=== PATIENT | male | born 1965 | race Caucasian/White ===

== ENCOUNTER 2017-09-24 10:37 | Emergency (ER) | payer BC, SELFPAY ==
[2017-09-24] VITALS (8 sets, daily range): BP systolic 133–185; BP diastolic 85–102; PULSE 42–62; RESP 16–24; TEMP 36.6–36.7; O2SAT 98–100; BMI 25.1; BMI 21.8
--- NOTE | 2017-09-24 10:47 | HMH.EDGENADL ---
ED Disposition Clinical Impression: Headache Disposition: Xfer Critical Access Hosp Condition on Discharge: Serious Forms: Transfer Record - ED - Critical Care Critical Care Time: No Attestation: On , the high probability of a clinically significant, sudden or life threatening deterioration of the following system(s) required my full and direct attention, intervention and personal management. The time I documented below is in addition to time spent performing reported procedures but includes the following listed in this critical care notation. Medical Decision Making Vital Signs: 09/24/17 10:38 09/24/17 11:30 09/24/17 11:32 Temperature 98.0 F Temperature Source Oral Pulse Rate Pulse Rate [Orthostatic Lying Right] 56 L Pulse Rate [Orthostatic Sitting Right Brachial] 54 L Pulse Rate [Orthostatic Standing Right Brachial] Pulse Rate [Right Radial] 62 Respiratory Rate 20 Blood Pressure Blood Pressure [Orthostatic Lying] 141/85 Blood Pressure [Orthostatic Sitting Right Arm] 150/88 Blood Pressure [Orthostatic Standing] Blood Pressure [Right Arm] 154/92 Blood Pressure Mean [Right Arm] 112 Blood Pressure Source Blood Pressure Source [Right Arm] Automatic Cuff Blood Pressure Position Blood Pressure Position [Right Arm] Supine 02 Sat by Pulse Oximetry 100 Oxygen Delivery Method Room Air 09/24/17 11:34 09/24/17 12:12 09/24/17 12:27 Temperature Temperature Source Pulse Rate Pulse Rate [Orthostatic Lying Right] Pulse Rate [Orthostatic Sitting Right Brachial] Pulse Rate [Orthostatic Standing Right Brachial] 58 L Pulse Rate [Right Radial] 46 L 44 L Respiratory Rate 24 18 Blood Pressure Blood Pressure [Orthostatic Lying] Blood Pressure [Orthostatic Sitting Right Arm] Blood Pressure [Orthostatic Standing] 140/91 Blood Pressure [Right Arm] 180/92 185/92 Blood Pressure Mean [Right Arm] 121 123 Blood Pressure Source Blood Pressure Source [Right Arm] Blood Pressure Position Blood Pressure Position [Right Arm] 02 Sat by Pulse Oximetry 100 Oxygen Delivery Method Non-Rebreather 09/24/17 12:52 09/24/17 13:02 Temperature 98 F Temperature Source Oral Pulse Rate 48 L Pulse Rate [Orthostatic Lying Right] Pulse Rate [Orthostatic Sitting Right Brachial] Pulse Rate [Orthostatic Standing Right Brachial] Pulse Rate [Right Radial] 42 L Respiratory Rate 16 16 Blood Pressure 133/102 Blood Pressure [Orthostatic Lying] Blood Pressure [Orthostatic Sitting Right Arm] Blood Pressure [Orthostatic Standing] Blood Pressure [Right Arm] 133/102 Blood Pressure Mean [Right Arm] 112 Blood Pressure Source Automatic Cuff Blood Pressure Source [Right Arm] Blood Pressure Position Supine Blood Pressure Position [Right Arm] 02 Sat by Pulse Oximetry 98 Oxygen Delivery Method Room Air - Lab Data Lab Results 09/24/17 10:45: WBC 7.3, RBC 5.41, Hgb 15.5, Hct 46.3, MCV 85.6, MCH 28.6, MCHC 33.4, RDW 12.7, Plt Count 241, MPV 7.2 L, Neut % (Auto) 52.4, Lymph % (Auto) 39.1, [place] % (Auto) 6.3, Eos % (Auto) 1.6, Baso % (Auto) 0.6, Neut # (Auto) 3.8, Lymph # (Auto) 2.8, [place] # (Auto) 0.5, Eos # (Auto) 0.1, Baso # (Auto) 0.0 09/24/17 10:45: Sodium 139, Potassium 3.7, Chloride 103, Carbon Dioxide 29, Anion Gap 10.7, BUN 14, Creatinine 1.02, Estimated Creat Clear 93, Estimated GFR 77, Est GFR ( Amer) 93, Glucose 118 H, Calcium 8.8, Total Bilirubin 0.6, AST 14 L, ALT 30, Alkaline Phosphatase 124 H, Total Creatine Kinase 195, CK-MB (CK-2) 2.4, CK-MB (CK-2) Rel Index 1.2, Troponin I < 0.02, Total Protein 6.9, Albumin 4.0, Globulin 2.9, Albumin/Globulin Ratio 1.4 Result diagrams: 09/24/17 10:45 09/24/17 10:45 Orders (Tests/Meds): ED MEDICATIONS Discontinued Medications Generic Name Dose Route Start Last Admin Trade Name Freq PRN Reason Stop Dose Admin Morphine Sulfate 4 mg 09/24/17 12:19 09/24/17 12:25 Yordani
--- NOTE | 2017-09-24 10:53 | CT_ITS ---
CT head/brain wo con HISTORY: ITS.REASON: sharp pain left side head, syncope ORDERING PHYSICIAN: Shorty Lambert MD PATIENT AGE: 52 years COMPARISON: None TECHNIQUE: Axial images obtained without contrast. Brain and bone windows reviewed. FINDINGS: No midline shift, mass effect, intracranial hemorrhage, hydrocephalus, or extra-axial fluid collection is evident. Slight low-density changes are present in the periventricular region in the parietal occipital area bilaterally slightly greater on the right and may be related to ischemic gliotic change from small vessel disease. No acute intracranial hemorrhage. No intra or extra-axial mass. No mastoid effusion or sinus air-fluid level. Unremarkable calvarium. IMPRESSION: 1. No acute intracranial hemorrhage. 2. Subtle isodensity in the parieto-occipital lobes bilaterally slightly greater on the right and may be due to underlying ischemic gliotic change. MRI may confirm.
--- NOTE | 2017-09-24 10:54 | XR_ITS ---
XR chest 2V HISTORY: ITS.REASON: bradycardia with near syncope ORDERING PHYSICIAN: Shorty Lambert MD PATIENT AGE: 52 years COMPARISON: None available FINDINGS: The cardiomediastinal silhouette and pulmonary vascularity are within normal limits. The lungs are clear without infiltrates, suspicious nodules, or pleural effusions. No acute bony abnormalities. IMPRESSION: Negative chest, no acute finding
[2017-09-24 11:14] LABS: Basophils % 0.6 % (0.1-2.0); Eosinophils # 0.1 K/mm3 (0.0-0.4); Eosinophils % 1.6 % (0.1-12.0); Hematocrit 46.3 % (42.0-52.0); Hemoglobin 15.5 g/dL (14.1-18.0); Lymphocytes # 2.8 K/mm3 (0.7-4.5); Lymphocytes % 39.1 K/mm3 (10-50); Mean Corpuscular HGB Conc 33.4 g/dL (31.8-35.4); Mean Corpuscular Hemoglobin 28.6 pg (27.0-31.2); Mean Corpuscular Volume 85.6 fl (80-94); Mean Platelet Volume 7.2 fl (7.4-10.4); Monocytes # 0.5 K/mm3 (0.1-1.0); Monocytes % 6.3 % (1.7-9.3); Neutrophils # 3.8 K/mm3 (1.8-7.8); Neutrophils % 52.4 % (37.0-80.0); Platelet Count 241 K/mm3 (142-424); Red Blood Count 5.41 M/mm3 (4.60-6.20); Red Cell Distribution Width 12.7 % (11.5-17.5); White Blood Count 7.3 K/mm3 (4.8-10.8)
[2017-09-24 11:29] LABS: Alanine Aminotransferase 30 U/L (12-78); Albumin/Globulin Ratio 1.4 (1.1-1.8); Alkaline Phosphatase 124 U/L (46-116); Anion Gap 10.7 mEq/L (5-15); Aspartate Amino Transferase 14 U/L (15-37); Bilirubin,Total 0.6 mg/dL (0.2-1.0); Blood Urea Nitrogen 14 mg/dL (7-18); CKMB Relative Index 1.2 U/L (0-4.0); Calcium 8.8 mg/dL (8.5-10.1); Carbon Dioxide 29 mmol/L (21.0-32.0); Chloride 103 mmol/L (98-107); Creatine Kinase 195 U/L (39-308); Creatine Kinase MB 2.4 mg/ml (0.0-3.6); Creatinine Clearance Estimated 93 mL/min (0-300); Creatinine,Serum 1.02 mg/dL (0.70-1.30); Estimated Glomerular Filt Rate 77 ml/min (>60); GFR (African American) 93 ML/MIN (>60); Globulin 2.9 gm/dl (1.3-3.2); Glucose 118 mg/dL (74-106); Potassium 3.7 mmoL/L (3.5-5.1); Sodium 139 mmol/L (136-145); Total Protein,Serum 6.9 gm/dL (6.4-8.2); Troponin I < 0.02 ng/ml (0.00-0.06)
--- NOTE | 2017-09-24 12:14 | PC.NURSE ---
Pt complaining of severe headache of left side, 05/06. MD aware and at bedside. Given morphine and zofran IVP. MD contacting [facility] for potential transfer. Family at bedside. Will continue to monitor closely.
--- NOTE | 2017-09-24 12:39 | PC.NURSE ---
[facility] has declined transport due to weather , speaking with [facility] now
--- NOTE | 2017-09-24 12:44 | PC.NURSE ---
Report given to JOSSELINE Merlos at [facility].
== END 2017-09-24 12:50 | disposition critical access hospital (66) ==
PROVIDERS: Emergency Provider Emergency Medicine; Family Provider Internal Medicine
DX: R51 Headache (principal); R07.9 Chest pain, unspecified; R55 Syncope and collapse
CPT/HCPCS: 70450; 71046; 80053; 82550; 82553; 84484; 85025; 93005; 96374; 96375; 96376; 99284; J2405

== ENCOUNTER 2017-09-28 14:49 | Emergency (ER) | payer BC, SELFPAY ==
--- NOTE | 2017-09-28 | CT_ITS ---
CT head/brain wo con HISTORY: Left-sided headache with dizziness and weakness ITS.REASON: LEFT SIDED HEADACHE ORDERING PHYSICIAN: Marilia Garcia MD PATIENT AGE: 52 years COMPARISON: 09/24/2017 TECHNIQUE: Axial images obtained without contrast. Brain and bone windows reviewed. FINDINGS: No midline shift, mass effect, intracranial hemorrhage, hydrocephalus, or extra-axial fluid collection is evident. There is once again noted slight decreased attenuation in the right parietal-occipital region. Some of this may be due to the occipital horn of the lateral ventricle. There may be some ischemic gliotic change in this region as well. MRI may be of further value. The calvarium has an unremarkable appearance. No mastoid effusion. No sinus air-fluid levels.. IMPRESSION: 1. No change with no acute finding. 2. Suspect mild ischemic gliotic change in the right parieto-occipital lobe which may be confirmed with MRI
[2017-09-28 14:51] VITALS: BMI 23.6
[2017-09-28 14:53] VITALS: BP 150/75; PULSE 67; RESP 16; TEMP 36.6; O2SAT 98; BMI 23.6
--- NOTE | 2017-09-28 15:04 | HMH.EDNEU ---
ED Disposition Clinical Impression: TIA (transient ischemic attack), CVA (cerebral vascular accident) Disposition: Home, Self-Care Condition on Discharge: Fair Referrals: Hitesh Bowman MD [Primary Care Provider] - Forms: Transfer Record - ED - Critical Care Critical Care Time: No Attestation: On , the high probability of a clinically significant, sudden or life threatening deterioration of the following system(s) required my full and direct attention, intervention and personal management. The time I documented below is in addition to time spent performing reported procedures but includes the following listed in this critical care notation. Medical Decision Making Vital Signs: 09/28/17 14:53 Temperature 97.8 F Temperature Source Oral Pulse Rate [Right Radial] 67 Respiratory Rate 16 Blood Pressure [Right Arm] 150/75 Blood Pressure Mean [Right Arm] 100 Blood Pressure Source [Right Arm] Automatic Cuff Blood Pressure Position [Right Arm] Sitting 02 Sat by Pulse Oximetry 98 Oxygen Delivery Method Room Air - Lab Data Lab Results 09/28/17 15:00: WBC 9.2, RBC 5.61, Hgb 16.6, Hct 48.6, MCV 86.6, MCH 29.7, MCHC 34.2, RDW 12.5, Plt Count 252, MPV 7.2 L, Neut % (Auto) 64.4, Lymph % (Auto) 26.1, [place] % (Auto) 8.0, Eos % (Auto) 1.1, Baso % (Auto) 0.4, Neut # (Auto) 5.9, Lymph # (Auto) 2.4, [place] # (Auto) 0.7, Eos # (Auto) 0.1, Baso # (Auto) 0.0 09/28/17 15:00: Sodium 140, Potassium 3.9, Chloride 102, Carbon Dioxide 28, Anion Gap 13.9, BUN 18, Creatinine 1.17, Estimated Creat Clear 79, Estimated GFR 66, Est GFR ( Amer) 80, Glucose 111 H, Calcium 8.8, Total Bilirubin 1.0, AST 36, ALT 66, Alkaline Phosphatase 127 H, Total Creatine Kinase 94, CK-MB (CK-2) 1.1 D, CK-MB (CK-2) Rel Index 1.2, Troponin I < 0.02, Total Protein 7.2, Albumin 4.2, Globulin 3.0, Albumin/Globulin Ratio 1.4 09/28/17 15:00: PT 11.7, INR 1.08, APTT 34.0 Result diagrams: 09/28/17 15:00 09/28/17 15:00 Orders (Tests/Meds): ED MEDICATIONS Discontinued Medications Generic Name Dose Route Start Last Admin Trade Name Derek PRN Reason Stop Dose Admin Morphine Sulfate 2 mg 09/28/17 15:08 09/28/17 15:42 Morphine 2mg/Ml Syringe IV 09/28/17 15:09 2 mg ONCE ONE Administration Ondansetron HCl 4 mg 09/28/17 15:08 09/28/17 15:42 Zofran 4mg/2ml Vial IV 09/28/17 15:09 4 mg ONCE ONE Administration ORDERS Category Date Time Status CT head/brain wo con Routine Cat Scan 09/28/17 Taken - CT Data CT Scan: Head Time Received: 16:[address] Reviewed: Yes: I have viewed the radiologist's interpretation Preliminary Findings: Normal/NAD - Rao Inquiry Pt receiving controlled substance: No Rao was queried for this patient: No Medical Decision Making Narrative: CT scan with no acute finding the patient had a stable neuro exam from the initial presentation I called Dr. Nicolasa Sexton his stroke neurologist at [facility] who accepted him 1600. Neuro HPI - General Chief Complaint: Neuro Symptoms/Deficit Stated Complaint: HEADACHE Mode of Arrival: Wheelchair Limitations: Physical Limitations Description of Symptoms (Recalled from ER Triage Doc. by RN): HEADACHE FOR ONE HOUR. PAIN BEHIND LEFT EYE, BURNING IN NOSE. NOSYMPTOMS OF STROKE NOTED. 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 He did go to [facility] where he went on underwent an MRI and was discharged on Lovenox and Coumadin. Today 09/28/17 30 minutes ago after coming out of hoahaoism he developed severe left facial pain and unsteadiness. He was brought emergently to the ED. I assist him and he was taken directly to the CT scan. Onset (ago): minute(s) (30 minutes.) Timing confirmed by: family member Location: left face History of same: Yes Severity: severe Quality: other (Pain involving the left cheekbone and retro
--- NOTE | 2017-09-28 15:07 | ED_ITS ---
ED Disposition Clinical Impression: TIA (transient ischemic attack), CVA (cerebral vascular accident) Disposition: Home, Self-Care Condition on Discharge: Fair Referrals: Hitesh Bowman MD [Primary Care Provider] - Forms: Transfer Record - ED - Critical Care Critical Care Time: No Attestation: On , the high probability of a clinically significant, sudden or life threatening deterioration of the following system(s) required my full and direct attention, intervention and personal management. The time I documented below is in addition to time spent performing reported procedures but includes the following listed in this critical care notation. Medical Decision Making Vital Signs: 09/28/17 14:53 Temperature 97.8 F Temperature Source Oral Pulse Rate [Right Radial] 67 Respiratory Rate 16 Blood Pressure [Right Arm] 150/75 Blood Pressure Mean [Right Arm] 100 Blood Pressure Source [Right Arm] Automatic Cuff Blood Pressure Position [Right Arm] Sitting 02 Sat by Pulse Oximetry 98 Oxygen Delivery Method Room Air - Lab Data Lab Results 09/28/17 15:00: WBC 9.2, RBC 5.61, Hgb 16.6, Hct 48.6, MCV 86.6, MCH 29.7, MCHC 34.2, RDW 12.5, Plt Count 252, MPV 7.2 L, Neut % (Auto) 64.4, Lymph % (Auto) 26.1, [place] % (Auto) 8.0, Eos % (Auto) 1.1, Baso % (Auto) 0.4, Neut # (Auto) 5.9 , Lymph # (Auto) 2.4, [place] # (Auto) 0.7, Eos # (Auto) 0.1, Baso # (Auto) 0.0 09/28/17 15:00: Sodium 140, Potassium 3.9, Chloride 102, Carbon Dioxide 28, Anion Gap 13.9, BUN 18, Creatinine 1.17, Estimated Creat Clear 79, Estimated GFR 66, Est GFR ( Amer) 80, Glucose 111 H, Calcium 8.8, Total Bilirubin 1.0, AST 36, ALT 66, Alkaline Phosphatase 127 H, Total Creatine Kinase 94, CK- MB (CK-2) 1.1 D, CK-MB (CK-2) Rel Index 1.2, Troponin I < 0.02, Total Protein 7.2, Albumin 4.2, Globulin 3.0, Albumin/Globulin Ratio 1.4 09/28/17 15:00: PT 11.7, INR 1.08, APTT 34.0 Result diagrams: 09/28/17 15:00 09/28/17 15:00 Orders (Tests/Meds): ED MEDICATIONS Discontinued Medications Generic Name Dose Route Start Last Admin Trade Name Derek PRN Reason Stop Dose Admin Morphine Sulfate 2 mg 09/28/17 15:08 09/28/17 15:42 Morphine 2mg/Ml Syringe IV 09/28/17 15:09 2 mg ONCE ONE Administration Ondansetron HCl 4 mg 09/28/17 15:08 09/28/17 15:42 Zofran 4mg/2ml Vial IV 09/28/17 15:09 4 mg ONCE ONE Administration ORDERS Category Date Time Status CT head/brain wo con Routine Cat Scan 09/28/17 Taken - CT Data CT Scan: Head Time Received: 16:[address] Reviewed: Yes: I have viewed the radiologist's interpretation Preliminary Findings: Normal/NAD - Rao Inquiry Pt receiving controlled substance: No Rao was queried for this patient: No Medical Decision Making Narrative: CT scan with no acute finding the patient had a stable neuro exam from the initial presentation I called Dr. Nicolasa Sexton his stroke neurologist at [facility] who accepted him 1600. Neuro HPI - General Chief Complaint: Neuro Symptoms/Deficit Stated Complaint: HEADACHE Mode of Arrival: Wheelchair Limitations: Physical Limitations Description of Symptoms (Recalled from ER Triage Doc. by RN): HEADACHE FOR ONE HOUR. PAIN BEHIND LEFT EYE, BURNING IN NOSE. NOSYMPTOMS OF STROKE NOTED. - History of Present Illness HPI Narrative:
[2017-09-28 15:16] LABS: Basophils % 0.4 % (0.1-2.0); Eosinophils # 0.1 K/mm3 (0.0-0.4); Eosinophils % 1.1 % (0.1-12.0); Hematocrit 48.6 % (42.0-52.0); Hemoglobin 16.6 g/dL (14.1-18.0); Lymphocytes # 2.4 K/mm3 (0.7-4.5); Lymphocytes % 26.1 K/mm3 (10-50); Mean Corpuscular HGB Conc 34.2 g/dL (31.8-35.4); Mean Corpuscular Hemoglobin 29.7 pg (27.0-31.2); Mean Corpuscular Volume 86.6 fl (80-94); Mean Platelet Volume 7.2 fl (7.4-10.4); Monocytes # 0.7 K/mm3 (0.1-1.0); Neutrophils # 5.9 K/mm3 (1.8-7.8); Neutrophils % 64.4 % (37.0-80.0); Platelet Count 252 K/mm3 (142-424); Red Blood Count 5.61 M/mm3 (4.60-6.20); Red Cell Distribution Width 12.5 % (11.5-17.5); White Blood Count 9.2 K/mm3 (4.8-10.8)
[2017-09-28 15:25] LABS: INR 1.08 (0.9-1.1); Prothrombin Time 11.7 seconds (9.4-11.8)
[2017-09-28 15:42] LABS: Alanine Aminotransferase 66 U/L (12-78); Albumin Level 4.2 gm/dL (3.4-5.0); Albumin/Globulin Ratio 1.4 (1.1-1.8); Alkaline Phosphatase 127 U/L (46-116); Anion Gap 13.9 mEq/L (5-15); Aspartate Amino Transferase 36 U/L (15-37); Blood Urea Nitrogen 18 mg/dL (7-18); CKMB Relative Index 1.2 U/L (0-4.0); Calcium 8.8 mg/dL (8.5-10.1); Carbon Dioxide 28 mmol/L (21.0-32.0); Chloride 102 mmol/L (98-107); Creatine Kinase 94 U/L (39-308); Creatine Kinase MB 1.1 mg/ml (0.0-3.6); Creatinine Clearance Estimated 79 mL/min (0-300); Creatinine,Serum 1.17 mg/dL (0.70-1.30); Estimated Glomerular Filt Rate 66 ml/min (>60); GFR (African American) 80 ML/MIN (>60); Glucose 111 mg/dL (74-106); Potassium 3.9 mmoL/L (3.5-5.1); Sodium 140 mmol/L (136-145); Total Protein,Serum 7.2 gm/dL (6.4-8.2); Troponin I < 0.02 ng/ml (0.00-0.06)
--- NOTE | 2017-09-28 15:55 | PC.NURSE ---
Pt nurse speaking with [facility]'s stroke team at this time.
--- NOTE | 2017-09-28 16:12 | PC.NURSE ---
[facility] notified of transfer.
--- NOTE | 2017-09-28 16:48 | PC.NURSE ---
ACCEPTING DOCTOR IS DR SWARTZ, ACCEPTING NURSE IS KAYKAY JOGRENSEN. REPORT CALLED TO NURSE AT THIS TIME.
[2017-09-28 16:49] VITALS: BP 150/75; PULSE 66; RESP 16; TEMP 36.6; O2SAT 97
== END 2017-09-28 16:52 | disposition home or self-care (01) ==
PROVIDERS: Emergency Provider Emergency Medicine; PCP Emergency Medicine
DX: G45.8 Other transient cerebral ischemic attacks and related syndromes (principal); Z79.01 Long term (current) use of anticoagulants; F17.210 Nicotine dependence, cigarettes, uncomplicated
CPT/HCPCS: 70450; 80053; 82550; 82553; 84484; 85025; 85610; 85730; 96374; 96375; 99282; J2405

== ENCOUNTER 2017-09-29 08:40 | Outpatient (CLI) | payer BC, SELFPAY ==
[2017-09-29 15:43] LABS: PHA INR Fingerstick 1.4 (0.9-1.1)
== END 2017-09-29 15:48 | disposition home or self-care (01) ==
PROVIDERS: Emergency Medicine; PCP Psychiatry & Neurology Neurology; Visit Provider Psychiatry & Neurology Neurology
DX: Z51.81 Encounter for therapeutic drug level monitoring (principal); I65.09 Occlusion and stenosis of unspecified vertebral artery; Z79.01 Long term (current) use of anticoagulants
CPT/HCPCS: 85610; 99211; G0463

== ENCOUNTER 2017-10-02 08:53 | Outpatient (CLI) | payer BC, SELFPAY ==
[2017-10-02 15:01] LABS: PHA INR Fingerstick 1.9 (0.9-1.1)
== END 2017-10-02 15:18 | disposition home or self-care (01) ==
PROVIDERS: PCP Emergency Medicine; Visit Provider Psychiatry & Neurology Neurology
DX: Z79.01 Long term (current) use of anticoagulants (principal); Z51.81 Encounter for therapeutic drug level monitoring; I65.09 Occlusion and stenosis of unspecified vertebral artery
CPT/HCPCS: 85610; 99211; G0463

== ENCOUNTER 2017-10-06 08:57 | Outpatient (CLI) | payer BC, SELFPAY ==
[2017-10-06 11:42] LABS: PHA INR Fingerstick 1.8 (0.9-1.1)
== END 2017-10-06 12:08 | disposition home or self-care (01) ==
LOC: ACC 08:58
PROVIDERS: PCP Emergency Medicine; Visit Provider Emergency Medicine
DX: Z79.01 Long term (current) use of anticoagulants (principal); Z51.81 Encounter for therapeutic drug level monitoring; I65.09 Occlusion and stenosis of unspecified vertebral artery
CPT/HCPCS: 85610; 99211; G0463

== ENCOUNTER 2017-10-14 08:49 | Outpatient (CLI) | payer BC, SELFPAY ==
[2017-10-14 11:15] LABS: PHA INR Fingerstick 1.9 (0.9-1.1)
== END 2017-10-14 15:44 | disposition home or self-care (01) ==
LOC: ACC 08:49
PROVIDERS: PCP Emergency Medicine; Visit Provider Emergency Medicine
DX: Z79.01 Long term (current) use of anticoagulants (principal); Z51.81 Encounter for therapeutic drug level monitoring; I65.09 Occlusion and stenosis of unspecified vertebral artery
CPT/HCPCS: 85610; 99211; G0463

== ENCOUNTER 2017-10-28 08:25 | Outpatient (CLI) | payer BC, SELFPAY ==
[2017-10-28 16:22] LABS: PHA INR Fingerstick 1.4 (0.9-1.1)
== END 2017-10-28 16:33 | disposition home or self-care (01) ==
LOC: ACC 08:25
PROVIDERS: Family Provider Internal Medicine; PCP Emergency Medicine; Visit Provider Emergency Medicine
DX: Z79.01 Long term (current) use of anticoagulants (principal); Z51.81 Encounter for therapeutic drug level monitoring; I65.09 Occlusion and stenosis of unspecified vertebral artery
CPT/HCPCS: 85610; 99211; G0463

== ENCOUNTER 2017-11-11 07:19 | Outpatient (CLI) | payer BC, SELFPAY ==
[2017-11-11 14:50] LABS: PHA INR Fingerstick 1.5 (0.9-1.1)
== END 2017-11-11 14:51 | disposition home or self-care (01) ==
LOC: ACC 07:21
PROVIDERS: PCP Emergency Medicine; Visit Provider Psychiatry & Neurology Neurology
DX: Z79.01 Long term (current) use of anticoagulants (principal); Z51.81 Encounter for therapeutic drug level monitoring; I65.09 Occlusion and stenosis of unspecified vertebral artery
CPT/HCPCS: 85610; 99211; G0463

== ENCOUNTER 2017-11-20 15:50 | Outpatient (CLI) | payer BC, SELFPAY ==
[2017-11-20 16:35] LABS: PHA INR Fingerstick 1.6 (0.9-1.1)
== END 2017-11-20 16:37 | disposition home or self-care (01) ==
LOC: ACC 15:51
PROVIDERS: Family Provider Internal Medicine; PCP Emergency Medicine; Visit Provider Emergency Medicine
DX: Z79.01 Long term (current) use of anticoagulants (principal); Z51.81 Encounter for therapeutic drug level monitoring; I65.09 Occlusion and stenosis of unspecified vertebral artery
CPT/HCPCS: 85610; 99211; G0463

== ENCOUNTER 2017-11-28 07:45 | Outpatient (CLI) | payer BC, SELFPAY | END 2017-11-28 16:27 | disposition home or self-care (01) | PROVIDERS: Family Provider Internal Medicine; PCP Emergency Medicine; Visit Provider Emergency Medicine | DX: Z79.01 Long term (current) use of anticoagulants (principal); Z51.81 Encounter for therapeutic drug level monitoring; I65.09 Occlusion and stenosis of unspecified vertebral artery | CPT/HCPCS: 85610; 99211; G0463 ==

== ENCOUNTER 2017-12-15 08:00 | Outpatient (CLI) | payer BC, SELFPAY ==
[2017-12-15 11:43] LABS: PHA INR Fingerstick 1.5 (0.9-1.1)
== END 2017-12-15 11:51 | disposition home or self-care (01) ==
LOC: ACC 08:01
PROVIDERS: PCP Emergency Medicine; Visit Provider Emergency Medicine
DX: Z79.01 Long term (current) use of anticoagulants (principal); Z51.81 Encounter for therapeutic drug level monitoring; I65.09 Occlusion and stenosis of unspecified vertebral artery
CPT/HCPCS: 85610; 99211; G0463

== ENCOUNTER → 2019-11-15 09:02 | Outpatient (POV) | payer BC, SELFPAY | PROVIDERS: PCP Emergency Medicine; Visit Provider Specialist | DX: M79.621 Pain in right upper arm (principal) | CPT/HCPCS: 95886; 95908 ==

== ENCOUNTER → 2021-05-12 09:10 | Outpatient (CLI) | payer BC, SELFPAY ==
[2021-05-12 09:40] LABS: Basophils # 0.1 K/mm3 (0-0.2); Eosinophils # 0.2 K/mm3 (0.0-0.4); Eosinophils % 2.3 % (0.1-12.0); Hematocrit 49.2 % (42.0-52.0); Hemoglobin 16.6 g/dL (14.1-18.0); Lymphocytes # 2.4 K/mm3 (0.7-4.5); Lymphocytes % 34.8 % (10-50); Mean Corpuscular HGB Conc 33.7 g/dL (31.8-35.4); Mean Corpuscular Hemoglobin 30.2 pg (27.0-31.2); Mean Corpuscular Volume 89.6 fl (80-94); Mean Platelet Volume 8.1 fl (7.4-10.4); Monocytes # 0.4 K/mm3 (0.1-1.0); Monocytes % 5.8 % (1.7-9.3); Neutrophils # 3.9 K/mm3 (1.8-7.8); Neutrophils % 56.1 % (37.0-80.0); Platelet Count 272 K/mm3 (142-424); Red Blood Count 5.49 M/mm3 (4.60-6.20); Red Cell Distribution Width 13.1 % (11.5-17.5); White Blood Count 6.9 K/mm3 (4.8-10.8)
[2021-05-12 10:07] LABS: Alanine Aminotransferase 21 U/L (12-78); Alkaline Phosphatase 99 U/L (38-126); Anion Gap 9.3 mEq/L (5-15); Aspartate Amino Transferase 22 U/L (17-59); Bilirubin,Total 0.5 mg/dl (0.2-1.3); Blood Urea Nitrogen 12 mg/dl (9-20); Calcium 9.1 mg/dl (8.4-10.2); Carbon Dioxide 27 mmol/L (22.0-30.0); Chloride 107 mmol/L (98-107); Chol/HDL Ratio 3.6 (1-3.5); Cholesterol 181 mg/dl (140-200); Estimated Glomerular Filt Rate 117 ml/min (>60); GFR (African American) 142 ML/MIN (>60); Glucose 112 mg/dl (74-100); HDL Cholesterol 50 mg/dl (40-60); Potassium 4.3 mmoL/L (3.5-5.1); Sodium 139 mmol/L (136-145); Triglycerides 78 mg/dl (30-150); VLDL Cholesterol 16 mg/dL (0-40)
[2021-05-12 10:24] LABS: Free T4 (Free Thyroxine) 0.97 ng/dl (0.78-2.19)
[2021-05-12 10:25] LABS: 25-OH Vitamin D, Total 58.4 ng/mL (30-100)
[2021-05-12 10:38] LABS: Prostate Specific Ag Screen 1.1 ng/ml (0.0-4.0); Thyroid Stimulating Hormone 1.24 uIU/mL (0.465-4.68)
== END ==
PROVIDERS: Visit Provider Emergency Medicine
DX: R53.83 Other fatigue (principal); K59.00 Constipation, unspecified; E03.9 Hypothyroidism, unspecified; Z12.5 Encounter for screening for malignant neoplasm of prostate
CPT/HCPCS: 36415; 80053; 80061; 82306; 84439; 84443; 85025; G0103

== ENCOUNTER → 2021-08-15 08:53 | Outpatient (CLI) | payer BC, SELFPAY ==
--- NOTE | 2021-08-15 08:54 | FL_ITS ---
FINAL REPORT CLINICAL HISTORY: . DYSPHAGIA 54 SECOND FLUORO TIME FINDINGS: ESOPHAGRAM HISTORY: Dysphagia PROCEDURE: The patient ingested barium. Effervescent crystals were also administered. Spot and overhead films were obtained. FINDINGS:The esophagus is normal. There is no gastroesophageal reflux . There is a small, sliding-type hiatal hernia.A 13 mm barium tablet passed throughout the esophagus without delay. IMPRESSION: Small sliding-type hiatal hernia. Otherwise, unremarkable exam. Reviewed, Interpreted and Dictated by Wes Patino III, MD Transcribed by YINA John Authenticated by Wes Patino III, MD on 08/15/2021 11:53:04 AM [facility]
== END ==
PROVIDERS: PCP Emergency Medicine; Visit Provider Emergency Medicine
DX: R13.10 Dysphagia, unspecified (principal)
CPT/HCPCS: 74220

== ENCOUNTER → 2022-03-26 07:00 | Outpatient (CLI) | payer BC, SELFPAY ==
[2022-03-26 19:50] LABS: Basophils # 0.1 K/mm3 (0-0.2); Basophils % 0.9 % (0.1-2.0); Eosinophils # 0.1 K/mm3 (0.0-0.4); Eosinophils % 1.2 % (0.1-12.0); Hematocrit 47.3 % (42.0-52.0); Hemoglobin 15.1 g/dL (14.1-18.0); Lymphocytes # 2.8 K/mm3 (0.7-4.5); Lymphocytes % 34.5 % (10-50); Mean Corpuscular Hemoglobin 29.2 pg (27.0-31.2); Mean Corpuscular Volume 91.2 fl (80-94); Mean Platelet Volume 8.6 fl (7.4-10.4); Monocytes # 0.4 K/mm3 (0.1-1.0); Monocytes % 5.2 % (1.7-9.3); Neutrophils # 4.8 K/mm3 (1.8-7.8); Neutrophils % 58.2 % (37.0-80.0); Platelet Count 313 K/mm3 (142-424); Red Blood Count 5.19 M/mm3 (4.60-6.20); Red Cell Distribution Width 13.2 % (11.5-17.5); White Blood Count 8.2 K/mm3 (4.8-10.8)
[2022-03-26 20:15] LABS: Erythrocyte Sedimentation Rate 2 mm/hr (0-20)
[2022-03-26 20:41] LABS: Alanine Aminotransferase 26 U/L (12-78); Albumin Level 4.1 g/dl (3.5-5.0); Albumin/Globulin Ratio 2.1 (1.1-1.8); Alkaline Phosphatase 118 U/L (38-126); Amylase 69 U/L (30-110); Aspartate Amino Transferase 26 U/L (17-59); Bilirubin,Total 0.4 mg/dl (0.2-1.3); Blood Urea Nitrogen 11 mg/dl (9-20); Carbon Dioxide 27 mmol/L (22.0-30.0); Chloride 107 mmol/L (98-107); Estimated Glomerular Filt Rate 87 ml/min (>60); GFR (African American) 106 ML/MIN (>60); Glucose 97 mg/dl (74-100); Lipase 129 U/L (23-300); Sodium 138 mmol/L (136-145); Total Protein,Serum 6.1 g/dl (6.3-8.2)
== END ==
PROVIDERS: PCP Emergency Medicine; Visit Provider Emergency Medicine
DX: R10.9 Unspecified abdominal pain (principal)
CPT/HCPCS: 80053; 82150; 83690; 85025; 85651

== ENCOUNTER → 2022-03-29 12:26 | Outpatient (CLI) | payer BC, SELFPAY ==
--- NOTE | 2022-03-29 12:32 | CT_ITS ---
FINAL REPORT CLINICAL HISTORY: abdominal pain FINDINGS: CT OF THE ABDOMEN AND PELVIS WITH CONTRAST Axial CT images of the abdomen and pelvis were obtained after the administration of intravenous contrast. Coronal reformatted images were also obtained and reviewed.This study was performed with techniques to keep radiation doses as low as reasonably achievable (ALARA). Individualized dose reduction techniques using automated exposure control or adjustment of mA and/or kV according to the patient's size were employed. Abdomen: There is mild lower lobe atelectasis. The heart is normal in size. There is a less than 1 cm probable cyst in the inferior right hepatic lobe. The gallbladder is present. The spleen is unremarkable. No adrenal mass is present. The pancreas has an unremarkable appearance. The kidneys are normal, without evidence of mass or hydronephrosis. The aorta is normal in caliber. There is no free fluid or adenopathy. No mass or abnormal fluid collection is seen. Pelvis: The appendix is normal. The urinary bladder is unremarkable. No inflammatory process is seen. There is no evidence of mass or adenopathy. There is no evidence of bowel obstruction. There is a left prostate calcification. IMPRESSION: No evidence of acute intra-abdominal process. Reviewed, Interpreted and Dictated by Wes Patino III, MD Transcribed by Isidro Thompson Authenticated and [facility]
== END ==
LOC: RAD 12:28
PROVIDERS: PCP Emergency Medicine; Visit Provider Emergency Medicine
DX: R10.9 Unspecified abdominal pain (principal)
CPT/HCPCS: 74177; Q9967

== ENCOUNTER → 2022-04-09 08:07 | Outpatient (CLI) | payer BC, SELFPAY ==
--- NOTE | 2022-04-09 08:09 | US_ITS ---
FINAL REPORT CLINICAL HISTORY: abdominal pain FINDINGS: Sonographic images of the right upper quadrant were obtained. The pancreas is partially obscured.The liver has an unremarkable appearance.The gallbladder appears normal without evidence of gallstones.There is no evidence of biliary ductal dilatation.The common duct measures 3 mm. Limited images of the right kidney are unremarkable. IMPRESSION: Unremarkable right upper quadrant ultrasound. Reviewed, Interpreted and Dictated by Wes Patino III, MD Transcribed by Sravani Martinez Authenticated and [facility]
== END ==
LOC: RAD 08:07
PROVIDERS: PCP Emergency Medicine; Visit Provider Emergency Medicine
DX: R10.11 Right upper quadrant pain (principal)
CPT/HCPCS: 76705

== ENCOUNTER → 2022-04-24 10:07 | Outpatient (CLI) | payer BC, SELFPAY ==
--- NOTE | 2022-04-24 10:11 | NM_ITS ---
FINAL REPORT CLINICAL HISTORY: ABD Pain 10:40AM 8.64 MCI TC CHOLETEC 1.5 MCG CCK FINDINGS: HEPATOBILIARY SCAN WITH CCK INJECTION Following intravenous administration of approximately 8.64 of technetium Choletec, multiple scintigraphic images were obtained. The hepatic parenchymal phase shows homogeneous distribution of the tracer throughout the liver. Prompt appearance of tracer is noted in the intrahepatic and extrahepatic biliary systems. The gallbladder visualizes normal. Biliary to bowel transit is within normal limits. Following intravenous CCK injection, gallbladder ejection fraction is estimated to be 71 %. IMPRESSION: Normal gallbladder ejection fraction of 71 %. Reviewed, Interpreted and Dictated by Shruti Cannon MD Transcribed by Isidro Thompson Authenticated and [facility]
== END ==
LOC: RAD 10:08
PROVIDERS: PCP Emergency Medicine; Visit Provider Emergency Medicine
DX: R10.9 Unspecified abdominal pain (principal)
CPT/HCPCS: 78227; A9537; J2805

== ENCOUNTER → 2022-04-25 14:22 | Outpatient (CLI) | payer BC, SELFPAY ==
--- NOTE | 2022-04-25 14:27 | MR_ITS ---
PROCEDURE INFORMATION: Exam: MR Cervical Spine Without Contrast Exam date and time: 04/25/2022 2:31 PM Age: 57 years old Clinical indication: Neck pain TECHNIQUE: Imaging protocol: Magnetic resonance imaging of the cervical spine without contrast. COMPARISON: NECKW CT SOFT TISSUE NECK W/CONTRAST 06/27/2016 10:05 AM FINDINGS: Limitations: The study is mildly limited due to patient motion artifact. Bones/joints: No acute fracture is identified. Alignment is anatomic. Spinal cord: The cervical cord is of normal signal intensity and size. C2-C3: There is mild right foraminal stenosis due to uncinate spurring and facet arthropathy. There is no spinal canal or left foraminal stenosis. C3-C4: There is minimal uncinate spurring. There is no significant spinal canal or neural foraminal stenosis. C4-C5: There is minimal uncinate spurring. There is no significant spinal canal or neural foraminal stenosis. C5-C6: There is minimal shallow broad-based posterior disc bulging and moderate uncinate spurring. This is causing moderate left and mild right foraminal stenosis. There is no significant spinal canal stenosis. C6-C7: No significant disc disease. No significant spinal stenosis. C7-T1: No significant disc disease. No significant spinal stenosis. Soft tissues: The prevertebral soft tissues are within normal limits. Vasculature: Expected flow voids in the vertebral arteries. IMPRESSION: 1. Mildly limited exam due to motion artifact 2. No acute abnormality. 3. Chronic findings as discussed above.
--- NOTE | 2022-04-25 14:27 | MR_ITS ---
PROCEDURE INFORMATION: Exam: MR Thoracic Spine Without Contrast Exam date and time: 04/25/2022 2:31 PM Age: 57 years old Clinical indication: Pain in thoracic spine; Additional info: Back pain TECHNIQUE: Imaging protocol: Magnetic resonance imaging of the thoracic spine without contrast. COMPARISON: CT ABDOMEN PELVIS W CON 03/29/2022 1:02 PM FINDINGS: Bones/joints: Unremarkable. Spinal cord: Normal signal. No cord compression. Discs/Spinal canal/Neural foramina: No significant disc disease. No significant spinal canal stenosis. Soft tissues: Unremarkable. IMPRESSION: No significant abnormality of the thoracic spine.
--- NOTE | 2022-04-25 14:38 | XR_ITS ---
FINAL REPORT CLINICAL HISTORY: RULE OUT METAL FOREIGN BODY FOR MRI. PRIOR HX METAL IN BOTH EYES. FINDINGS: ORBITS 2 views were obtained. There is no acute fracture or malalignment. The paranasal sinuses are symmetric. There is no evidence of a metallic foreign body in the region the orbits. Dental amalgams are seen bilaterally. IMPRESSION: No evidence of metallic foreign body in the region of the orbits. Reviewed, Interpreted and Dictated by Shruti Cannon MD Transcribed by Maria A Castle Authenticated and [facility]
== END ==
LOC: RAD 14:22
PROVIDERS: PCP Emergency Medicine; Visit Provider Emergency Medicine
DX: M54.2 Cervicalgia (principal); M54.9 Dorsalgia, unspecified; H05.53 Retained (old) foreign body following penetrating wound of bilateral orbits
CPT/HCPCS: 70200; 72141; 72146; 76376

== ENCOUNTER 2022-06-19 08:59 | Day surgery (SDC) | payer BC, SELFPAY ==
[2022-06-03 14:18] VITALS: BMI 25.1
[2022-06-19 09:10] VITALS: BP 139/82; PULSE 69; RESP 18; TEMP 36.2; O2SAT 95
--- NOTE | 2022-06-19 09:28 | P.PN_ITS ---
PFSH PFSH Medical History Hx TIA/stroke w/o resid Hyperlipidemia Surgical History Hx of surgical amputation of finger Family History Other Family history of diabetes mellitus type II Social History Smoking Status: Current some day smoker tobacco type: cigarettes packs per day: 1 pack-years: 40 alcohol intake: never substance use type: marijuana current occupational status: employed Travel in the last 8 weeks: None caffeine: No special hans needs: No agree to transfusion: No do you feel safe at home: Yes victim of physical abuse: No victim of emotional abuse: No victim of sexual abuse: No would you like helpful sources: No [facility] Anesthesia Checklist Patient Identification Patient Identification: Arm Band and Verbal (Name & ) Structural Data Admitted From: Home Planned Operative Procedure/s: EGD/Colonoscopy Consent for Planned Operative Procedure(s) Verified: Yes NPO Status Verified Time NPO: 00:00 Additional verifications Anesthesia Reactions: No Airway Assessment C-Spine Mobility Assessed: Yes TMJ Mobility Assessed: Yes Dentition: Good Dentition Neurological Assessment Level of Consciousness: Awake Hx Seizures: No Numbness or tingling in extremities: No Anesthesia Plan Anesthesia Risk discussed: Yes Anesthesia Plan: Verified ASA Class: III Anesthesia Type: MAC
[2022-06-19 09:39] VITALS: O2SAT 95
--- NOTE | 2022-06-19 10:01 | HMH.SCOPE ---
Procedure: Date: 06/19/22 Patient Date of :: 1965 Procedure Performed:: EGD & biopsies Indications:: Chronic abdominal pain Performing Provider:: Torrie De Los Santos MD Referring Provider:: Hitesh Bowman MD Sedation:: Propofol Procedure:: The gastroscope was gently passed through the incisoral orifice into the oral cavity and under direct visualization the esophagus was intubated. The endoscope was passed down the esophagus, through the stomach, and into the duodenum. Color, texture, mucosa, and anatomy of the esophagus, stomach, and duodenum were carefully examined with the scope. Findings:: Oropharynx: normal Esophagus: normal, small strip of ferrera's mucosa noted, biopsies obtained EG Junction: intact at 40 cm Cardia: normal Fundus: normal Body: normal Antrum: normal Duodenal bulb: normal Duodenum (second and third portion): normal Impression: Small strip of ferrera's mucosa in distal esophagus No evidence of hiatus hernia Specimens:: Ferrera's mucosa Recommendations:: Conservative PPI therapy and repeat EGD & biopsies in about THREE years or so Complications:: None Estimated blood obtained (mL): 0
[2022-06-19 10:03] VITALS: BP 101/66; PULSE 98; RESP 16; TEMP 36.2; O2SAT 97
--- NOTE | 2022-06-19 10:05 | HMH.SCOPE ---
Procedure: Date: 06/19/22 Patient Date of :: 1965 Procedure Performed:: Colonoscopy Indications:: Chronic abdominal pain Performing Provider:: Torrie De Los Santos MD Referring Provider:: Hitesh Bowman MD Sedation:: Propofol Procedure:: After placing the patient in the left lateral decubitus position, the colonoscopy was gently inserted into the rectum and under direct visualization advanced to the cecum which was identified by transillumination in the right lower quadrant, identification of the ileocecal valve, appendiceal orifice, and cecal strap. Color, texture, mucosa, and anatomy of the colon were carefully examined with the scope. Findings:: Anal canal: normal Rectum: normal Sigmoid colon: normal without polyps or inflammatory changes Descending colon: normal without polyps or inflammatory changes Splenic flexure: normal Transverse colon: normal without polyps or inflammatory changes Hepatic flexure: normal Ascending colon: normal without polyps or inflammatory changes Cecum: normal Terminal ileum: not visualized Impression: Normal colonoscopy Recommendations:: Repeat examination in about TEN years or so, sooner if clinically indicated Complications:: None Estimated blood obtained (mL): 0
[2022-06-19 10:13] VITALS: BP 118/75; PULSE 76; RESP 17; O2SAT 97
[2022-06-19 10:23] VITALS: BP 112/84; PULSE 75; RESP 18; O2SAT 98
[2022-06-19 10:33] VITALS: BP 124/83; PULSE 69; RESP 18; O2SAT 99
== END 2022-06-19 11:15 | disposition home or self-care (01) ==
PROVIDERS: PCP Emergency Medicine; Visit Provider Internal Medicine Gastroenterology
PROC: 0DJ08ZZ Inspection of Upper Intestinal Tract, Via Natural or Artificial Opening Endoscopic (ICD-10-PCS; CPT 43235; principal; 2022-06-19 10:00)
DX: R10.9 Unspecified abdominal pain (principal); K21.00 Gastro-esophageal reflux disease with esophagitis, without bleeding; Z72.0 Tobacco use
CPT/HCPCS: 45378; 43239; 88305

== ENCOUNTER → 2022-08-10 08:14 | Outpatient (CLI) | payer BC, SELFPAY ==
[2022-08-10 08:47] LABS: Basophils # 0.1 K/mm3 (0-0.2); Basophils % 1.4 % (0.1-2.0); Eosinophils # 0.2 K/mm3 (0.0-0.4); Eosinophils % 2.6 % (0.1-12.0); Hematocrit 46.9 % (42.0-52.0); Hemoglobin 15.4 g/dL (14.1-18.0); Lymphocytes # 2.6 K/mm3 (0.7-4.5); Lymphocytes % 33.8 % (10-50); Mean Corpuscular Hemoglobin 29.1 pg (27.0-31.2); Mean Corpuscular Volume 88.4 fl (80-94); Mean Platelet Volume 7.3 fl (7.4-10.4); Monocytes # 0.5 K/mm3 (0.1-1.0); Monocytes % 6.9 % (1.7-9.3); Neutrophils # 4.2 K/mm3 (1.8-7.8); Neutrophils % 55.3 % (37.0-80.0); Platelet Count 312 K/mm3 (142-424); Red Cell Distribution Width 13.1 % (11.5-17.5); White Blood Count 7.6 K/mm3 (4.8-10.8)
[2022-08-10 09:13] LABS: Alanine Aminotransferase 21 U/L (12-78); Albumin Level 4.1 g/dl (3.5-5.0); Albumin/Globulin Ratio 2.3 (1.1-1.8); Alkaline Phosphatase 85 U/L (38-126); Anion Gap 9.2 mEq/L (5-15); Aspartate Amino Transferase 23 U/L (17-59); Bilirubin,Total 0.5 mg/dl (0.2-1.3); Blood Urea Nitrogen 15 mg/dl (9-20); Calcium 8.6 mg/dl (8.4-10.2); Carbon Dioxide 28 mmol/L (22.0-30.0); Chloride 108 mmol/L (98-107); Chol/HDL Ratio 3.3 (1-3.5); Cholesterol 150 mg/dl (140-200); Estimated Glomerular Filt Rate 100 ml/min (>60); GFR (African American) 121 ML/MIN (>60); Globulin 1.8 g/dL (1.3-3.2); Glucose 112 mg/dl (74-100); HDL Cholesterol 46 mg/dl (40-60); Potassium 4.2 mmoL/L (3.5-5.1); Sodium 141 mmol/L (136-145); Total Protein,Serum 5.9 g/dl (6.3-8.2); Triglycerides 72 mg/dl (30-150); VLDL Cholesterol 14 mg/dL (0-40)
[2022-08-10 09:25] LABS: Direct LDL Cholesterol 81.42 mg/dL (100-129)
[2022-08-10 09:31] LABS: 25-OH Vitamin D, Total 35.6 ng/mL (30-100); Free T4 (Free Thyroxine) 0.98 ng/dl (0.78-2.19)
[2022-08-10 09:45] LABS: Thyroid Stimulating Hormone 2.68 uIU/mL (0.465-4.68)
== END ==
PROVIDERS: PCP Emergency Medicine; Visit Provider Emergency Medicine
DX: R10.13 Epigastric pain (principal); R53.83 Other fatigue; Z12.5 Encounter for screening for malignant neoplasm of prostate
CPT/HCPCS: 36415; 80053; 80061; 82306; 84439; 84443; 85025; G0103

== ENCOUNTER → 2022-11-19 08:55 | Outpatient (CLI) | payer BC, SELFPAY ==
--- NOTE | 2022-11-19 09:15 | XR_ITS ---
FINAL REPORT CLINICAL HISTORY: foot pain FINDINGS: 3 views of the right foot were obtained. There is no acute fracture or dislocation. The joint spaces are intact. The soft tissues are unremarkable. IMPRESSION: No acute process. Reviewed, Interpreted and Dictated by Wes Patino III, MD Transcribed by Isidro Thompson Authenticated and [facility]
--- NOTE | 2022-11-19 09:15 | XR_ITS ---
FINAL REPORT CLINICAL HISTORY: Chronic left foot pain FINDINGS: LEFT FOOT: Three views of the left foot were obtained. There is no acute fracture or dislocation. The joint spaces are intact. There is no soft tissue abnormality. IMPRESSION: No acute bony abnormality. Reviewed, Interpreted and Dictated by Wes Patino III, MD Transcribed by Sravani Martinez Authenticated and [facility]
== END ==
PROVIDERS: PCP Emergency Medicine; Visit Provider Nurse Practitioner Family
DX: M79.672 Pain in left foot (principal); M79.671 Pain in right foot
CPT/HCPCS: 73630

== ENCOUNTER → 2023-02-01 08:28 | Outpatient (CLI) | payer BC, SELFPAY ==
[2023-02-01 09:01] LABS: Basophils # 0.1 K/mm3 (0-0.2); Basophils % 0.6 % (0.1-2.0); Eosinophils # 0.2 K/mm3 (0.0-0.4); Eosinophils % 2.2 % (0.1-12.0); Hematocrit 47.2 % (42.0-52.0); Hemoglobin 15.8 g/dL (14.1-18.0); Lymphocytes # 2.8 K/mm3 (0.7-4.5); Lymphocytes % 29.4 % (10-50); Mean Corpuscular HGB Conc 33.5 g/dL (31.8-35.4); Mean Corpuscular Hemoglobin 29.2 pg (27.0-31.2); Mean Platelet Volume 7.1 fl (7.4-10.4); Monocytes # 0.5 K/mm3 (0.1-1.0); Monocytes % 5.6 % (1.7-9.3); Neutrophils % 62.3 % (37.0-80.0); Platelet Count 249 K/mm3 (142-424); Red Blood Count 5.42 M/mm3 (4.60-6.20); Red Cell Distribution Width 12.9 % (11.5-17.5); White Blood Count 9.6 K/mm3 (4.8-10.8)
[2023-02-01 09:22] LABS: Alanine Aminotransferase 29 U/L (12-78); Albumin Level 4.3 g/dl (3.5-5.0); Albumin/Globulin Ratio 2.3 (1.1-1.8); Alkaline Phosphatase 113 U/L (38-126); Anion Gap 12.1 mEq/L (5-15); Aspartate Amino Transferase 28 U/L (17-59); Bilirubin,Total 0.8 mg/dl (0.2-1.3); Blood Urea Nitrogen 13 mg/dl (9-20); Calcium 8.9 mg/dl (8.4-10.2); Carbon Dioxide 27 mmol/L (22.0-30.0); Chloride 104 mmol/L (98-107); Estimated Glomerular Filt Rate 87 ml/min (>60); GFR (African American) 105 ML/MIN (>60); Globulin 1.9 g/dL (1.3-3.2); Glucose 113 mg/dl (74-100); Potassium 4.1 mmoL/L (3.5-5.1); Sodium 139 mmol/L (136-145); Total Protein,Serum 6.2 g/dl (6.3-8.2)
== END ==
PROVIDERS: PCP Emergency Medicine; Visit Provider Nurse Practitioner
DX: R10.9 Unspecified abdominal pain (principal); R13.10 Dysphagia, unspecified; R19.7 Diarrhea, unspecified; R10.13 Epigastric pain; Z72.0 Tobacco use
CPT/HCPCS: 36415; 80053; 82656; 83993; 85025; 87205

== ENCOUNTER → 2023-02-08 11:07 | Outpatient (CLI) | payer BC, SELFPAY ==
[2023-02-11 00:03] LABS: Calprotectin, Fecal 14 ug/g (0-120)
[2023-02-12 19:56] LABS: Pancreatic Elastase, Fecal 62 (>200)
== END ==
PROVIDERS: PCP Emergency Medicine; Visit Provider Nurse Practitioner
DX: R10.9 Unspecified abdominal pain (principal); R19.7 Diarrhea, unspecified
CPT/HCPCS: 82656; 83993; 87205

== ENCOUNTER 2023-04-17 10:26 | Day surgery (SDC) | payer BC, SELFPAY ==
[2023-04-02 14:39] VITALS: BMI 23.8
[2023-04-17 10:37] VITALS: BP 114/58; PULSE 48; RESP 18; TEMP 36.6; O2SAT 96
[2023-04-17 10:51] VITALS: O2SAT 98
--- NOTE | 2023-04-17 11:03 | HMH.SCOPE ---
Procedure: Date: 04/17/23 Patient Date of :: 1965 Procedure Performed:: EGD and biopsies with bougie dilation Indications:: Dysphagia, abdominal pain Performing Provider:: Torrie De Los Santos MD Referring Provider:: Amirah De Los Santos APRN Sedation:: Propofol Procedure:: The gastroscope was gently passed through the incisoral orifice into the oral cavity and under direct visualization the esophagus was intubated. The endoscope was passed down the esophagus, through the stomach, and into the duodenum. Color, texture, mucosa, and anatomy of the esophagus, stomach, and duodenum were carefully examined with the scope. Findings:: Oropharynx: normal Esophagus: normal, patch of barretts as noted previously, dysphagia treated with several passes of the 58F bougie dilator EG Junction: intact at 40 cm Cardia: normal Fundus: normal Body: normal, biopsies obtained for evaluation of h.pylori Antrum: normal Duodenal bulb: normal Duodenum (second and third portion): normal Impression: Segment of barretts Dysphagia treated with bougie dilation No evidence of ulcer disease or hiatus hernia Specimens:: Gastric Recommendations:: F/U EGD in about THREE years or so for monitoring of Barretts Complications:: None Estimated blood obtained (mL): 0 Colonoscopy Component Colonoscopy Component Was a colonoscopy performed during today's procedure?: No
[2023-04-17 11:06] VITALS: BP 106/55; PULSE 62; RESP 16; TEMP 36.3; O2SAT 94
--- NOTE | 2023-04-17 11:09 | EXP.ANES.CKL ---
[facility] Disclaimer: The information contained in this section may have been updated after the patient was seen, as this information can be updated by other users. Medical History History of pancreatic disorder Hx TIA/stroke w/o resid Hyperlipidemia Surgical History History of esophagogastroduodenoscopy (EGD) Hx of surgical amputation of finger Family History Sister Family history of cancer Family/Other Family history of pancreatic cancer Other Family history of diabetes mellitus type II Social History Smoking Status: Current every day smoker tobacco type: cigarettes packs per day: 1 pack-years: 40 alcohol intake: never substance use type: marijuana current occupational status: employed Travel in the last 8 weeks: None household members: spouse housing: house lives independently: No marital status: caffeine: No special hans needs: No agree to transfusion: No do you feel safe at home: Yes victim of physical abuse: No victim of emotional abuse: No victim of sexual abuse: No would you like helpful sources: No [facility] Anesthesia Checklist Patient Identification Patient Identification: Verbal (Name & ) Structural Data Admitted From: Home Planned Operative Procedure/s: egd Consent for Planned Operative Procedure(s) Verified: Yes Additional verifications Anesthesia Reactions: No Airway Assessment Mallampati Score:: Class I C-Spine Mobility Assessed: Yes TMJ Mobility Assessed: Yes Dentition: Good Dentition Neurological Assessment Level of Consciousness: Awake, Alert and Appropriate Anesthesia Plan Anesthesia Risk discussed: Yes Anesthesia Plan: Verified ASA Class: II Anesthesia Type: MAC
[2023-04-17 11:16] VITALS: BP 114/59; PULSE 50; RESP 16; O2SAT 95
[2023-04-17 11:26] VITALS: BP 104/60; PULSE 59; RESP 16; O2SAT 96
[2023-04-17 11:36] VITALS: BP 110/58; PULSE 60; RESP 18; O2SAT 95
== END 2023-04-17 11:36 | disposition home or self-care (01) ==
PROVIDERS: PCP Emergency Medicine; Visit Provider Internal Medicine Gastroenterology
PROC: 0DJ08ZZ Inspection of Upper Intestinal Tract, Via Natural or Artificial Opening Endoscopic (ICD-10-PCS; CPT 43235; principal; 2023-04-17 11:30)
DX: K29.50 Unspecified chronic gastritis without bleeding (principal); R13.10 Dysphagia, unspecified; K22.70 Barrett's esophagus without dysplasia
CPT/HCPCS: 43239; 43248

== ENCOUNTER → 2023-06-13 17:03 | Outpatient (CLI) | payer BC, SELFPAY ==
--- NOTE | 2023-06-13 17:04 | MR_ITS ---
FINAL REPORT CLINICAL HISTORY: back pain WITH LEFT HIP PAIN. PAIN, NUMBNESS AND TINGLING TO KNEE DOWN LEFT LEG. WEAKNESS IN LEG. COMPARISON: None FINDINGS: Multiplanar MR imaging of the lumbar spine was performed without contrast. On the sagittal T2-weighted images, disc degeneration is seen at several levels. The vertebral alignment is normal. There are endplate changes at L4-5. No bony mass is identified. The conus has an unremarkable appearance. T11-12: Annular disc bulge. No significant canal stenosis or neuroforaminal narrowing. T12-L1: No significant canal stenosis or neuroforaminal narrowing. L1-2: An annular bulge is present. There is no significant canal stenosis or neural foraminal narrowing. L2-3: An annular bulge is present. There is no significant canal stenosis or neural foraminal narrowing. L3-4: Annular disc bulge and facet arthropathy. Mild right neuroforaminal narrowing. L4-5: Annular disc bulge, facet arthropathy, and osteophytes. Moderate bilateral neuroforaminal narrowing L5-S1: An annular bulge is present. Mild left neuroforaminal narrowing. IMPRESSION: Multilevel degenerative disc disease and spondylosis as described. Reviewed, Interpreted and Dictated by Wes Patino III, MD Transcribed by Danelle Mariscal Authenticated and [facility]
--- NOTE | 2023-06-13 17:06 | XR_ITS ---
PROCEDURE INFORMATION: Exam: XR Left Hip Exam date and time: 06/13/2023 5:52 PM Age: 58 years old Clinical indication: Hip pain; Left hip TECHNIQUE: Imaging protocol: Radiologic exam of the left hip. Views: 2 or 3 views hip with pelvis when performed. COMPARISON: CT ABDOMEN PELVIS W CON 03/29/2022 1:02 PM FINDINGS: Bones/joints: The osseous structures appear intact with no evidence of acute fracture, dislocation, or malalignment. Joint spaces are preserved. No abnormal bone density or destructive lesions are noted. Suspect bone island in the left femoral neck Soft tissues: Soft tissues appear unremarkable. Vasculature: Multiple pelvic phleboliths are present. IMPRESSION: At the time of imaging, there is no evidence for acute osseous abnormalities. Clinical correlation is advised for comprehensive assessment.
== END ==
LOC: RAD 17:04
PROVIDERS: PCP Emergency Medicine; Visit Provider Emergency Medicine
DX: M54.9 Dorsalgia, unspecified (principal); M25.552 Pain in left hip
CPT/HCPCS: 72148; 73502; 76376

== ENCOUNTER 2023-07-17 08:00 | Outpatient (RCR) | payer BC, SELFPAY ==
--- NOTE | 2023-07-09 16:22 | HMH.PTOPEV ---
PT Outpatient Evaluation Rehab PT Outpatient Evaluation Start: 07/09/23 14:41 Freq: Status: Active Protocol: Document 07/09/23 15:37 PHORCHRIS (Rec: 07/09/23 16:22 PHORNE [id number]) E-signed By Sunny Sunshine, PT Outpatient Therapy Subjective History Subjective History This is the initial PT eval for Andrew Medrano, 58 yowm who presents with significant thoracolumbar spine pain with radicular symptoms x ~ 2-3 yrs . He states, I fell off of a ladder, about 8-10 ft, and landed flat on my back. That started all this back pain and it has just been getting worse since then. He has had Cervical, Thoracic, and Lumbar MRI performed in the past. Lumbar spine shows significant L3-S1 vertebral disc bulges with foraminal narrowing. Thoracic MRI with no abnormalities noted. He reports consistent B LE radicular symptoms, worse on the L side. He also reports intermittent L side rib pain that is sharp in nature. New diagnosis of cancer in past 12 No months? Chief Complaint Pain Symptom Type Ache,Sharp,Numbness,Tingling Symptoms Relieved By Nothing Symptoms Aggravated By Standing,Physical Activity, Lifting Prior Functional Limitations None Current Functional Limitations Lifting,Standing,Recreation Activity Symptom Description Constant and Continuous Level of pain today (0-10) 5 Pain scale - at its best (0-10) 4 Pain scale - at its worst (0-10) 10 Lumbopelvic Eval Palapation tenderness bilateral thoracic spinal tenderness Yes: 3/4 T6-7 paraspinal tenderness Yes: 2/4 Lumbar Accessory Movement L-spine Vertebrae Accessory Movements Central P/A [place] that [place]licit Symptoms L3 bilateral L4 bilateral L5 bilateral S1 bilateral Range of Motion Lumbar Spine Active Flexion Range of 0-65 Motion (degrees) Lumbar Spine Active Extension Range of 0-25 Motion (degrees) Left Lumbar Spine Lateral Flexion Active 0-20 Range of Motion (degrees) Right Lumbar Spine Lateral Flexion 0-20 Active Range of Motion (degrees) Manual Muscle Test Bilateral Knee Extension Strength Grade 5 Normal Knee Flexion Strength Grade 5 Normal Hip Flexion Strength Grade 5 Normal Hip Abduction Strength Grade 5 Normal Hip Adduction Strength Grade 5 Normal Extensor Hallucis Longus Strength Grade 5 Normal Ankle Dorsiflexion Strength Grade 5 Normal Gastronemius/Soleus Strength Grade 5 Normal Special Tests Hip Scouring (Quadrant) Test Negative Left,Negative Right Hip Andrew (CHERELLE) Test Negative Left,Negative Right Hip Piriformis Test Negative Left,Negative Right Sciatic Nerve Tension Test Negative Left,Negative Right Unilateral Straight Leg Raise (Lasegue) Negative Left,Negative Right Test Lumbar Long Menno Distraction Test/Manual Positive Traction Oswestry Index Section 1 Pain Intensity The pain comes and goes and is severe Section 2 Personal Care (Washing,Dresing) change my way of washing or dressing in order to avoid pain Section 3 Lifting lifting heavy weights off the floor, but I can manage light to medium Section 4 Walking I have some pain when walking but it does not increase with distance Section 5 Sitting I can sit in my favorite chair for as long as I like Section 6 Standing I have some pain on standing, but it does not increase with time Section 7 Sleeping I get pain in bed, but it does not prevent me from sleeping well Section 8 Social Life My social life is normal and gives me no extra pain Section 9 Traveling I get no pain when traveling Section 10 Changing Degreee of Pain My pain seems to be getting better, but improvement is slow Score and Risk Level Oswestry Sc 14 Oswestry Risk Level Mild Disability Outpatient Therapy Assessment Impairments Problems/Impairmments Palpation Tenderness,Impaired Endurance,Impaired Lifting, Impaired Household Care, Impaired Stepping on Uneven Surface,Impaired Work Activities,Subjective C/O Pain ,Impaired Self Care/Self Management Prognosis Rehab Potential Good Clinical Impression Consistent with Diagnosis Yes Short Term Goals Number of Weeks 2 Decreased Palpation Tenderness Yes: 1/4 mid-low back Increase Ability to Stand Yes: > 30 min without pain Improve Oswestry Score Yes: < 11 Decrease Subjective C/O Pain Yes: 10/04 Patient to be Ind w/ HEP Yes Detention Goals Number of Weeks 4 Decreased Palpation Tenderness Yes: 0/4 mid-low back Increase Ability to Stand Yes: > 1 hr without pain Improve Tolerance to Work Activities Yes Improve Oswestry Score Yes: < 8 Decrease Subjective C/O Pain Yes: 2 Patient to be Ind w/ Advanced HEP Yes Outpatient Therapy Plan of Care Treatment Plan May Include Therapeutic Exercise Including Home Yes Exercise Program Manual Therapy Techniques Yes Neuromuscular Re-education Yes Therapeutic Activities to Return to Yes Previous Functional/Work Level ADL/Self Care Education Yes Mechanical Traction Yes Thermal Modalities Yes Electrical Stimulation Yes Ultrasound/Phonophoresis Yes Iontophoresis Yes Orthotics/Bracing/Splinting Yes Massage Yes Eval/Re-Eval Yes Frequency Times per week 2 Duration Number of Weeks 4 Addendums This patient is a candidate for social No or vocational rehab? Patient/Guardian verbally acknowledges Yes understanding of treatment program and consents to further treatment? Patient/Guardian verbally acknowledges Yes understanding of diagnosis, prognosis and goals for treatment? Eval Complexity PT Charges 76058 - High Complexity Shoulder/Elbow Eval Shoulder Objective Measurements Elbow Objective Measurements PHYSICIAN CERTIFICATION: I certify the specified therapy services for Andrew Medrano are required, authorized, and reviewed every 30 days.
== END 2023-07-17 09:10 | disposition home or self-care (01) ==
LOC: PT 08:00
PROVIDERS: PCP Emergency Medicine; Visit Provider Nurse Practitioner Family
DX: M54.50 Low back pain, unspecified (principal); M54.16 Radiculopathy, lumbar region
CPT/HCPCS: 97010; 97014; 97110; 97163; G0283

== ENCOUNTER → 2023-07-17 09:06 | Outpatient (POV) | payer BC, SELFPAY ==
[2023-07-17 09:47] VITALS: BP 161/77; PULSE 60; RESP 18; O2SAT 97; BMI 24.3
--- NOTE | 2023-07-17 13:52 | EXP.PAIN.OV ---
HPI Data of Consult Patient: new to practice Consult date: 07/17/23 Requesting Physician: Pati Thomas APRN Primary Care Provider: Eligio Jones DO Consult Narrative Reason for consult: Mid back pain, low back pain, abdominal pain History of present illness: Mr. Medrano is a 58 year old male who presents today as a new patient. He is a referral from Vera Willoughby's office. Today he rates his pain a 10 out of 10. Patient states he has pain at multiple locations including his mid back and low back as well as his abdominal area. He also states he has hip and knee issues that do come and go. Patient does state this is all related to a accident he had about 3 years ago when he fell off an 8 foot ladder landing flat on his back on the concrete. Patient does state he constantly experiences a dull toothache like sensation along his mid back and that will have chronic aching pain around his low back and abdomen. Patient does state when he had his fall it did cause issues with his pancreas to where it does not secrete enzymes the way it should to break down his food resulting in chronic abdominal pain. Patient does state that he even will occasionally have pain into his upper arms due to dealing with drywall and having his hands above his head for periods of time. Patient does state he frequently has numbness and tingling in his legs and feet. 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 Patient has tried [id number] Tylenol and ibuprofen along with heat and ice and topicals with minimal relief. Patient states he is currently in physical therapy and it does help some. Patient states he has been to a GI specialist for his abdominal pain with no significant findings. Patient states he has been prescribed Percocet 5 mg 3 times a day from his primary care provider however he does not like taking medications and will only use these in severe pain times. Patient denies any previous back surgery. His Rao has been reviewed and is appropriate. CC: Pati Thomas APRN [facility] Disclaimer: The information contained in this section may have been updated after the patient was seen, as this information can be updated by other users. Medical History History of pancreatic disorder EPI- exocrine pancreatic insufficiency Hx TIA/stroke w/o resid Hyperlipidemia Surgical History History of esophagogastroduodenoscopy (EGD) dilation Hx of surgical amputation of finger Family History Sister Family history of cancer Family/Other Family history of pancreatic cancer Other Family history of diabetes mellitus type II Social History (Updated 07/17/23 @ 09:48 by Johanna Bates RN) Smoking Status: Current every day smoker tobacco type: cigarettes packs per day: 1 alcohol intake: never substance use type: marijuana current occupational status: employed Travel in the last 8 weeks: None household members: spouse housing: house lives independently: No marital status: caffeine: No special hans needs: No agree to transfusion: No do you feel safe at home: Yes victim of physical abuse: No victim of emotional abuse: No victim of sexual abuse: No would you like helpful sources: No Review of Systems Review of Systems Review of systems:: pertinent systems reviewed and negative unless documented below Review of systems (narrative): Review of Systems: General: No recent weight changes, no fever, no sleep disturbances Respiratory: No cough, no shortness of air, no recurring pulmonary infections Cardiovascular/peripheral vascular: No chest pain, no palpitations, no edema, no shortness of breath Gastrointestinal: No new onset incontinence, normal bowel movements reported Genitourinary: No new onset inc
== END ==
PROVIDERS: PCP Internal Medicine; Visit Provider Nurse Practitioner Family
DX: M51.16 Intervertebral disc disorders with radiculopathy, lumbar region (principal); M54.9 Dorsalgia, unspecified; R10.84 Generalized abdominal pain; M25.552 Pain in left hip; M25.562 Pain in left knee; G89.4 Chronic pain syndrome
CPT/HCPCS: 99202; G0463

== ENCOUNTER 2023-08-21 12:06 | Outpatient (CLI) | payer OTHER, SELFPAY ==
[2023-08-21 12:18] LABS: Basophils # 0.1 K/mm3 (0-0.2); Basophils % 0.8 % (0.1-2.0); Eosinophils # 0.1 K/mm3 (0.0-0.4); Eosinophils % 1.5 % (0.1-12.0); Hemoglobin 16.8 g/dL (14.1-18.0); Lymphocytes # 2.8 K/mm3 (0.7-4.5); Lymphocytes % 30.1 % (10-50); Mean Corpuscular Hemoglobin 31.3 pg (27.0-31.2); Mean Corpuscular Volume 89.4 fl (80-94); Mean Platelet Volume 8.2 fl (7.4-10.4); Monocytes # 0.6 K/mm3 (0.1-1.0); Monocytes % 6.3 % (1.7-9.3); Neutrophils # 5.8 K/mm3 (1.8-7.8); Neutrophils % 61.3 % (37.0-80.0); Platelet Count 267 K/mm3 (142-424); Red Blood Count 5.37 M/mm3 (4.60-6.20); White Blood Count 9.4 K/mm3 (4.8-10.8)
[2023-08-21 12:19] LABS: Chloride 104 mmol/L (98-107); Potassium 4.5 mmoL/L (3.5-5.1); Sodium 139 mmol/L (136-145)
[2023-08-21 12:22] LABS: Alanine Aminotransferase 37 U/L (12-78); Albumin Level 4.6 g/dl (3.5-5.0); Albumin/Globulin Ratio 2.2 (1.1-1.8); Alkaline Phosphatase 92 U/L (38-126); Anion Gap 11.5 mEq/L (5-15); Aspartate Amino Transferase 33 U/L (17-59); Bilirubin,Total 0.8 mg/dl (0.2-1.3); Blood Urea Nitrogen 12 mg/dl (9-20); Calcium 9.6 mg/dl (8.4-10.2); Carbon Dioxide 28 mmol/L (22.0-30.0); Chol/HDL Ratio 3.2 (1-3.5); Cholesterol 165 mg/dl (140-200); Estimated Glomerular Filt Rate 100 ml/min (>60); GFR (African American) 121 ML/MIN (>60); Globulin 2.1 g/dL (1.3-3.2); Glucose 94 mg/dl (74-100); HDL Cholesterol 51 mg/dl (40-60); Total Protein,Serum 6.7 g/dl (6.3-8.2); Triglycerides 67 mg/dl (30-150); VLDL Cholesterol 13 mg/dL (0-40)
[2023-08-21 12:33] LABS: Direct LDL Cholesterol 89.32 mg/dL (100-129)
[2023-08-21 12:53] LABS: Prostate Specific Ag Screen 1.4 ng/ml (0.0-4.0)
[2023-08-21 12:54] LABS: Thyroid Stimulating Hormone 0.82 uIU/mL (0.465-4.68)
== END 2023-08-21 23:59 ==
LOC: LAB.DROPOF 12:06
PROVIDERS: PCP Internal Medicine; Visit Provider Internal Medicine
DX: E78.5 Hyperlipidemia, unspecified (principal); R53.83 Other fatigue; R07.9 Chest pain, unspecified; I10 Essential (primary) hypertension; R20.0 Anesthesia of skin; Z12.5 Encounter for screening for malignant neoplasm of prostate
CPT/HCPCS: 80053; 80061; 82306; 83036; 84443; 85025; G0103

== ENCOUNTER 2024-06-09 13:27 | Outpatient (CLI) | payer OTHER, SELFPAY ==
--- NOTE | 2024-06-09 13:29 | CT_ITS ---
FINAL REPORT TECHNIQUE: Thin section axial CT images of the facial bones and sinuses were obtained without contrast. Coronal and sagittal reformatted images were also obtained. This study was performed with techniques to keep radiation doses as low as reasonably achievable, (ALARA). Individualized dose reduction techniques using automated exposure control or adjustment of mA and/or kV according to the patient's size were employed. CLINICAL HISTORY: sinus congestion, bilat facial swelling COMPARISON: None FINDINGS: There is mild mucosal thickening in the left frontal and left maxillary sinuses. There is a focal area of loculated fluid or mucus in the medial right maxillary sinus. No fluid levels are identified. The ostiomeatal units have an unremarkable appearance. There is a defect in the anterior nasal septum of uncertain etiology. No fracture or acute bony abnormality is identified. There is opacification of several inferior right mastoid air cells. IMPRESSION: Mild mucosal thickening left frontal and left maxillary sinuses, with a focal area of loculated fluid or mucus in the medial right maxillary sinus. No air-fluid levels are present. Defect in the anterior nasal septum, a finding of uncertain etiology. Reviewed, Interpreted and Dictated by Wes Patino III, MD Transcribed by Idalmis Ramirez Authenticated and [facility]
== END 2024-06-09 23:59 | disposition home or self-care (01) ==
LOC: RAD 13:27
PROVIDERS: PCP Internal Medicine; Visit Provider Nurse Practitioner
DX: R09.81 Nasal congestion (principal); R22.0 Localized swelling, mass and lump, head
CPT/HCPCS: 70486

== ENCOUNTER 2025-06-07 08:54 | Outpatient (CLI) | payer OTHER, SELFPAY ==
--- OUTSIDE RECORDS SUMMARY | 2025-06-07 09:00 | XMS_ITS | Clinical Summary ---
Author Organization Healthcare Address [address] [place] [address] Care Team Providers Care Dean Of Students Name Role Phone Unavailable Primary Care Provider Unavailabl e Family History Medical History Relation Name Comments Diabetes Other 1 Other cancer Other 2 Relation Name Status Comments Other 1 Other 2 Social History Tobacco Use Types Packs/Day Years Used Date Smoking Tobacco: Every Day Sex and Gender Information Value Date Recorded Sex Assigned at Not on file Legal Sex Male 8:53 PM EDT Gender Identity Not on file Sexual Orientation Not on file Last Filed Vital Signs Vital Sign Reading Time Taken Comments Blood Pressure 116/66 12/24/2017 10:51 AM EDT Pulse - - Temperature - - Respiratory Rate - - Oxygen Saturation - - Inhaled Oxygen Concentration - - Weight 79.4 kg (175 lb 0.7 oz) 12/24/2017 10:51 AM EDT Height 177.8 cm (5' 10 ) 12/24/2017 10:51 AM EDT Body Mass Index 25.12 12/24/2017 10:51 AM EDT Plan of Treatment Not on file
--- OUTSIDE RECORDS SUMMARY | 2025-06-07 09:00 | XMS_ITS | Clinical Summary ---
Author Organization [facility] Address [address] [place] [address] Care Team Providers Care Family Educator Name Role Phone Eligio Jones DO Primary Care Provider [phone] Allergies No known active allergies Medications atorvastatin (LIPITOR) 80 MG tablet Take 1 tablet by mouth Daily. for cholesterol Active esomeprazole (nexIUM) 20 MG capsule 1 capsule. Active oxyCODONE-acetam inophen (PERCOCET) 5-325 MG per tablet TAKE ONE TABLET BY MOUTH THREE TIMES DAILY NEEDED FOR PAIN MAY CAUSE DROWSINESS Active Creon 96130-388728 units capsule delayed-release particles capsule TAKE 1 CAPSULE BY MOUTH 4 TIMES DAILY WITH MEALS OR SNACK FOR PANCREATIC INSUFFICIENCY. Active aspirin 325 MG tablet Take 1 tablet by mouth Daily. Active multivitamin with minerals tablet tablet Take 1 tablet by mouth Daily. Active pregabalin (LYRICA) 75 MG capsuleIndicatio ns:Cervical spondylosis without myelopathy TAKE ONE CAPSULE BY MOUTH TWICE DAILY 60 capsule 4 Active Family History Medical History Relation Name Comments Heart disease Brother Heart disease Mother Other Mother Cancer Sister Relation Name Status Comments Brother Mother Sister Social History Tobacco Use Types Packs/Day Years Used Date Smoking Tobacco: Every Day Cigarettes Passive Smoke Exposure: Current Smokeless Tobacco: Never Tobacco Cessation:Ready to Q uit: Not Asked; Counseling Given: Not Answered Alcohol Use Standard Drinks/Week Comments Not Currently 0 (1 standard drink = 0.6 oz pur e alcohol) Abuse Screen Answer Date Recorded Unsafe at Home or Work/School Not on file Feels Threatened by Someone? Not on file 05/2023 Does Anyone Keep You from Co ntacting Others or Doint Things Outside the Home? 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 Not on file 05/07/2023 Disabilities Answer Date Recorded Concentrating, Remembering, or Making Decisions Difficulty Not on file 05/07/2023 Doing Errands Independently Difficulty Not on fi le 05/07/2023 Education Answer Date Recorded Help with school or training? Not on file Preferred Language Not on file 05/07/2023 Sex and Gender Information Value Date Recorded Sex Assigned at Not on file Legal Sex Male 12:13 PM EDT Gender Identity Not on file Sexual Orientation Not on file Last Filed Vital Signs Vital Sign Reading Time Taken Comments Blood Pressure 112/68 12/26/2023 9:44 AM EDT Pulse - - Temperature 36.3 C (97.3 F) 12/26/2023 9:44 AM EDT Respiratory Rate - - Oxygen Saturation - - Inhaled Oxygen Concentration - - Weight 75.8 kg (167 lb) 12/26/2023 9:44 AM EDT Height 177.8 cm (5' 10 ) 12/26/2023 9:44 AM EDT Body Mass Index 23.96 12/26/2023 9:44 AM EDT Plan of Treatment Health Maintenance Due Date Last Done Comments Pneumococcal Vaccine 50+ (1 of 2 - PCV) 1985 TDAP/TD VACCINES (1 - Tdap) 1985 COLOGUARD 2011 COLON CANCER SCREENING 5 YEA R SIGMOIDOSCOPY 2011 COLONOSCOPY 2011 [address] CANCER SCREENING 2011 CT COLONOGRAPHY 2011 FECAL OCCULT BLOOD TEST 2011 FIT Testing (1 year) 2011 ZOSTER VACCINE (2 of 3) 03/04/2019 01/07/2019, 08/08 ANNUAL PHYSICAL 12/26/2023 HEPATITIS C SCREENING 12/26/2023 INFLUENZA VACCINE 02/25/2025 [place] [address] [employer] Care Teams Family Educator Relationship Specialty Start Date End Date Eligio Jones DO [address] [place] [address] [place] [address] PCP - General Internal Medicine 12/04/23
[2025-06-09 18:14] LABS: Pancreatic Elastase, Fecal 487 (>200)
== END 2025-06-07 23:59 | disposition home or self-care (01) ==
LOC: LAB 08:55
PROVIDERS: PCP Family Medicine; Visit Provider Internal Medicine Gastroenterology
DX: K86.81 Exocrine pancreatic insufficiency (principal)
CPT/HCPCS: 82653

== ENCOUNTER 2025-07-14 12:41 | Outpatient (CLI) | payer OTHER, SELFPAY ==
--- OUTSIDE RECORDS SUMMARY | 2025-07-14 12:50 | XMS_ITS | Clinical Summary ---
Author Organization [facility] Address [address] [place] [address] Care Team Providers Care Nurse Ortho Name Role Phone Eligio Jones DO Primary Care Provider [phone] [phone] Allergies No known active allergies Medications atorvastatin (LIPITOR) 80 MG tablet Take 1 tablet by mouth Daily. for cholesterol Active esomeprazole (nexIUM) 20 MG capsule 1 capsule. Active oxyCODONE-acetam inophen (PERCOCET) 5-325 MG per tablet TAKE ONE TABLET BY MOUTH THREE TIMES DAILY NEEDED FOR PAIN MAY CAUSE DROWSINESS Active Creon [id number] units capsule delayed-release particles capsule TAKE 1 [...] C SCREENING 12/26/2023 INFLUENZA VACCINE 02/25/2025 [place] [address] [employer] Care Teams Nurse Ortho Relationship Specialty Start Date End Date Eligio Jones DO [address] [place] [address] [place] [address] PCP - General Internal Medicine 12/04/23
--- OUTSIDE RECORDS SUMMARY | 2025-07-14 12:50 | XMS_ITS | Clinical Summary ---
Author Organization Healthcare Address [address] [place] [address] Care Team Providers Care Thread Separator Name Role Phone Unavailable Primary Care Provider [...]
--- NOTE | 2025-07-14 13:00 | CT_ITS ---
FINAL REPORT TECHNIQUE: After the administration of oral and intravenous contrast, axial images were obtained through the abdomen and pelvis by computed tomography. The study was performed with techniques to keep radiation dose as low as reasonably achievable, (ALARA). Individual dose reduction techniques using automated exposure control or adjustment of mA and/or kV according to the patient's size were employed. CLINICAL HISTORY: Abdominal pain/radiating pain COMPARISON: 03/29/2022 FINDINGS: Abdomen: Chronic changes are noted in the lung bases. The liver parenchyma is homogeneous. The gallbladder is present. The spleen, pancreas, adrenals and kidneys appear unremarkable. The aorta is normal in caliber. There is no free fluid or adenopathy. Pelvis: The appendix is unremarkable. There is a large amount of stool in the colon. The urinary bladder is normal in size. Calcifications are noted within the prostate. There is no free fluid or adenopathy. IMPRESSION: Constipation. Reviewed, Interpreted and Dictated by Gen Sterling MD Transcribed by Danelle Mariscal Authenticated and [facility]
[2025-07-14] MEDS: BARIUM SULFATE(READI-CAT2);450ML BOTTLE 450 ML PO (13:04)
[2025-07-14] MEDS: SODIUM CHLORIDE 0.9% 10ML SYR (RAD ONLY) 10 ML IV (13:04)
[2025-07-14] MEDS: IOPAMIDOL-370 (76%);100ML BOTTLE 75 ML IV (13:04)
== END 2025-07-14 23:59 | disposition home or self-care (01) ==
LOC: RAD 12:42
PROVIDERS: PCP Family Medicine; Visit Provider Internal Medicine Gastroenterology
DX: K59.00 Constipation, unspecified (principal); K86.81 Exocrine pancreatic insufficiency
CPT/HCPCS: 74177; Q9967